=== PATIENT | male | born 1995 | race Caucasian/White ===

== ENCOUNTER 2019-04-17 21:09 | Emergency (ER) | payer BC ==
--- NOTE | 2019-04-17 22:49 | XR ---
EXAMINATION TYPE: XR wrist complete RT DATE OF EXAM: 04/17/2019 COMPARISON: NONE HISTORY: Wrist pain TECHNIQUE: 4 views FINDINGS: There is no fracture nor dislocation. Joint spaces are normal. Scaphoid is intact. IMPRESSION: Negative right wrist exam.
--- NOTE | 2019-04-17 22:55 | CT ---
EXAMINATION TYPE: CT facial bones wo con DATE OF EXAM: 04/17/2019 COMPARISON: None HISTORY: jaw pain CT DLP: 345.6 mGycm Automated exposure control for dose reduction was used. TECHNIQUE: CT scan of the sinuses is performed without contrast, axial images are obtained, coronal r eformatted images are also reviewed. FINDINGS: There are bilateral nondisplaced fractures of the mandibular condyles. Temporomandibular joints are a natomic. Zygomatic arches are intact. Nasal bone is intact. There is no evidence of blowout fracture. There is no evidence of orbital mass. There is fairly normal aeration of the paranasal sinuses. Tempo ral bones appear intact. IMPRESSION: Symmetric acute nondisplaced fractures of the mandibular condyles.
[2019-04-18] MEDS ORDERED: IBUPROFEN 800 MG TAB PO STA (00:10)
[2019-04-18] MEDS ORDERED: DIPH,PERTUS(ACELL)TETVAC-LF 0.5 ML VIAL IM ONE (00:34)
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
[2019-04-18 01:27] VITALS: BP 126/87; PULSE 72; RESP 16; TEMP 98.1
== END 2019-04-18 01:59 | disposition home or self-care (01) ==
LOC: EC 21:09
DX: S02.612A Fracture of condylar process of left mandible, initial encounter for closed fracture (principal); S02.611A Fracture of condylar process of right mandible, initial encounter for closed fracture; M25.531 Pain in right wrist; S60.511A Abrasion of right hand, initial encounter; Z23 Encounter for immunization; V00.131A Fall from skateboard, initial encounter; Y93.51 Activity, roller skating (inline) and skateboarding
CPT/HCPCS: 29125; 70486; 90471; 90715; 99284

== ENCOUNTER 2023-05-07 12:03 | Emergency (ER) | payer BC, OTHER ==
[2023-05-07 12:32] VITALS: RESP 18; TEMP 97.8
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
--- NOTE | 2023-05-07 12:56 | XR ---
EXAMINATION TYPE: XR tibia fibula RT DATE OF EXAM: 05/07/2023 COMPARISON: NONE HISTORY: Pain TECHNIQUE: Two views are submitted. FINDINGS: The osseous structures are intact. The joint spaces are preserved. Cortical thickening of the dista l diaphysis of the fibula is chronic IMPRESSION: 1. No acute osseous abnormality.
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
[2023-05-07 13:59] VITALS: BP 126/75; PULSE 62
== END 2023-05-07 13:46 | disposition home or self-care (01) ==
LOC: EC 12:03
DX: S63.91XA Sprain of unspecified part of right wrist and hand, initial encounter (principal); S80.11XA Contusion of right lower leg, initial encounter; F12.90 Cannabis use, unspecified, uncomplicated; V13.9XXA Unspecified pedal cyclist injured in collision with car, pick-up truck or van in traffic accident, initial encounter; Y93.55 Activity, bike riding
CPT/HCPCS: 99284

== ENCOUNTER 2024-06-18 00:07 | Emergency (ER) | payer OTHER ==
[2024-06-18 00:24] VITALS: BP 127/81; PULSE 65; RESP 18; TEMP 98
--- NOTE | 2024-06-18 00:36 | ED ---
ENT HPI - General Chief complaint: Dental/Oral Stated complaint: Oral Lesion Time Seen by Provider: 06/18/24 00:32 Source: patient, RN notes reviewed Mode of arrival: ambulatory Limitations: no limitations - History of Present Illness Initial comments: 28-year-old male presenting with bump inside of lip x 2 weeks. States he felt a bump formed about 2 weeks ago and has been squeezing it, noting drainage expressed from the bump. States pain and swelling is worsening. Denies dental pain or leg pain. Denies fevers, chills, nausea, vomiting. - Related Data Previous Rx's Medication Instructions Recorded Amoxic-Pot Clav 875-125Mg 1 tab PO Q12HR 7 Days #14 tab 06/18/24 [Augmentin 875-125] Triamcinolone Acetonide [Kenalog 1 spray TOPICAL BID PRN #100 gm 06/18/24 Topical [place]] Allergies Allergy/AdvReac Type Severity Reaction Status Date / Time No Known Allergies Allergy Verified 06/18/24 00:24 Review of Systems ROS Statement: Those systems with pertinent positive or pertinent negative responses have been documented in the HPI. ROS Other: All systems not noted in ROS Statement are negative. Past Medical History Past Medical History: No Reported History History of Any Multi-Drug Resistant Organisms: None Reported Past Surgical History: No Surgical Hx Reported Past Psychological History: ADD/ADHD Smoking Status: Never smoker Past Alcohol Use History: Occasional Past Drug Use History: Marijuana General Exam Limitations: no limitations General appearance: alert, in no apparent distress Head exam: Present: atraumatic, normocephalic, normal inspection ENT exam: Present: mucous membranes moist, other (1 x 1 cm fluctuant mass present on inner aspect of lip mucosa with active purulence) Psychiatric exam: Present: normal affect, normal mood Skin exam: Present: warm, dry, intact, normal color. Absent: rash Course Vital Signs 06/18/24 00:23 Temperature 98 F Pulse Rate 65 Respiratory 18 Rate Blood Pressure 127/81 O2 Sat by Pulse 98 Oximetry Procedures - Incision & Drainage Consent Obtained: verbal consent Indication: Oral abscess Site: oral Size (cm): 1 Sterile Field Used?: Yes Scalpel Used: #15 Ultrasound used: No Needle Aspiration Performed?: No Irrigation Performed?: No I&D Drainage Obtained: Pus, Blood Culture Obtained?: No Patient Tolerated Procedure: well, no complications Medical Decision Making - Medical Decision Making Was pt. sent in by a medical professional or institution (KARI Thompson, SUPPORT SERVICES COORDINATOR, urgent care, hospital, or senior living...) When possible be specific @ -No Did you speak to anyone other than the patient for history (EMS, parent, family, police, friend...)? What history was obtained from this source @ -No Did you review nursing and triage notes (agree or disagree)? Why? @ -I reviewed and agree with nursing and triage notes Were old charts reviewed (outside hosp., previous admission, EMS record, old EKG, old radiological studies, urgent care reports/EKG's, senior living records)? Report findings @ -No old charts were reviewed Differential Diagnosis (chest pain, altered mental status, abdominal pain women, abdominal pain men, vaginal bleeding, weakness, fever, dyspnea, syncope, headache, dizziness, GI bleed, back pain, seizure, CVA, palpatations, mental health, musculoskeletal)? @ -Oral abscess, aphthous ulcer, herpes simplex, dental abscess EKG interpreted by me (3pts min.). @ -None X-rays interpreted by me (1pt min.). @ -None done CT interpreted by me (1pt min.). @ -None done U/S interpreted by me (1pt. min.). @ -None done What testing was considered but not performed or refused? (CT, X-rays, U/S, labs)? Why? @ -None What meds were considered but not given or refused? Why? @ -None Did you discuss the management of the patient with other professionals (professionals i.e. , KARI, SUPPORT SERVICES COORDINATOR, lab, RT, psych nurse, director of social services, homicide squad lieutenant, teacher, chief operating officer, caser in)? Give summary @ -No Was smoking cessation discussed for >3mins.? @ -No Was critical care preformed (if so, how long)? @ -No Were there social determinants of health that impacted care today? How? (Homelessness, low income, unemployed, alcoholism, drug addiction, transportation, low edu. Level, literacy, decrease access to med. care, [facility], re hab)? @ -No Was there de-escalation of care discussed even if they declined (Discuss DNR or withdrawal of care, Hospice)? DNR status @ -No What co-morbidities impacted this encounter? (DM, HTN, Smoking, COPD, CAD, Cancer, CVA, ARF, Chemo, Hep., AIDS, mental health diagnosis, sleep apnea, morbid obesity)? @ -None Was patient admitted / discharged? Hospital course, mention meds given and route, prescriptions, significant lab abnormalities, going to OR and other pertinent info. @ -Discharge. This is a 28-year-old male presenting with bump on inner lip x 2 weeks. No red flag symptoms. Vital signs within acceptable limits. Physical examination reveals 1 x 1 cm fluctuant mass on inner oral mucosa with purulent drainage. Tetanus was updated. Analgesics were provided. Abscess was incised with minimal drainage. Prescribed Augmentin and topical Kenalog. Appropriate return precautions and follow-up care discussed. Patient is agreeable to plan. Case was discussed with my ED attending Dr. Barnes. Undiagnosed new problem with uncertain prognosis? @ -No Drug Therapy requiring intensive monitoring for toxicity (Heparin, Nitro, Insulin, Cardizem)? @ -No Were any procedures done? @ -Yes, incision and drainage Diagnosis/symptom? @ -Oral abscess Acute, or Chronic, or Acute on Chronic? @ -Acute Uncomplicated (without systemic symptoms) or Complicated (systemic symptoms)? @ -Uncomplicated Side effects of treatment? @ -No Exacerbation, Progression, or Severe Exacerbation? @ -No Poses a threat to life or bodily function? How? (Chest pain, [place], [place], pneumonia, PE, COPD, DKA, ARF, appy, cholecystitis, CVA, Diverticulitis, Homicidal, Suicidal, threat to staff... and all critical care pts) @ -No Disposition Clinical Impression: Oral abscess Disposition: HOME SELF-CARE Condition: Stable Instructions (If sedation given, give patient instructions): Abscess (ED) Additional Instructions: Take Augmentin as prescribed. Use steroid paste as needed for pain. Please return to the Emergency Department if symptoms worsen or any other concerns. Prescriptions: Amoxic-Pot Clav 875-125Mg [Augmentin 875-125] 1 tab PO Q12HR 7 Days #14 tab Triamcinolone Acetonide [Kenalog Topical [place]] 1 spray TOPICAL BID PRN #100 gm PRN Reason: Pain Is patient prescribed a controlled substance at d/c from ED?: No Referrals: Nonstaff,Physician [Primary Care Provider] - 1-2 days Time of Disposition: 00:58
[2024-06-18] MEDS: DIPH,PERTUS(ACELL)TETVAC-LF 0.5 ML VIAL IM ONE (01:10)
[2024-06-18] MEDS: KETOROLAC 15 MG/ML 1 ML VIAL IM STA (01:11)
== END 2024-06-18 01:16 | disposition home or self-care (01) ==
LOC: EC 00:07
DX: K12.2 Cellulitis and abscess of mouth (principal); Z23 Encounter for immunization
CPT/HCPCS: 90471 ×2; 96372 ×2; 99283 ×2; 10060; 90715; 41800; J1885